=== PATIENT | male | born 1945 | race Hispanic/Latino ===

== ENCOUNTER → 2017-09-19 | Outpatient (CLI) | payer MEDICARE, OTHER ==
--- NOTE | 2017-09-21 03:30 | CT ---
EXAM DESCRIPTION: Abdoment/Pelvis w/o Contrast CLINICAL HISTORY: 71 years Male, HEMATURIA COMPARISON: None. TECHNIQUE: Contiguous axial CT images of the abdomen and pelvis were acquired without administration of intravenous contrast. Coronal and sagittal reformatted images are provided. This exam was performed according to our departmental dose-optimization program which includes use of Automated Exposure Control, adjustment of the mA and/or kV according to patient size and/or use of iterative reconstruction technique. FINDINGS: Chest base: Scattered bibasilar atelectasis. Coronary artery calcifications. Small hiatal hernia. Liver: Unremarkable. Gallbladder: Unremarkable. Spleen: Unremarkable. Adrenals: Unremarkable. Pancreas: Unremarkable. Right Kidney: 2 mm renal stone or vascular calcification within the upper pole of the right kidney. No hydronephrosis. No ureteral stone. Left Kidney: Vascular calcifications within the left kidney. No definite renal stone. No hydronephrosis. No ureteral stone. Aorta and branch vessels: Moderate calcific atherosclerosis of the aortoiliac vessels. Lymph nodes: No lymphadenopathy. Bowels: No obstruction. Colon: Scattered colonic diverticula. Appendix: Normal. Peritoneum: No free air or free fluid. Pelvic organs: Partially visualized penile implant. Bladder: Unremarkable. Bones and soft tissues: Small fat-containing right inguinal hernia. Fluid-containing left inguinal hernia. Cylindrical radiopaque object within the distal left inguinal canal, likely related to prior surgery. IMPRESSION: 2 mm renal stone or vascular calcification within the upper pole of the right kidney. No ureteral stones or hydronephrosis bilaterally. Electronically signed by: Pawel Galloway MD 09/21/2017 3:29 AM MAIL DISTRIBUTOR
== END | disposition home or self-care (01) ==
LOC: CT 08:30
PROVIDERS: ATTEND Urology
DX: R31.21 Asymptomatic microscopic hematuria (principal)

== ENCOUNTER → 2017-10-15 | Outpatient (CLI) | payer MEDICARE, OTHER | LOC: GMAH 10:21 | PROVIDERS: ATTEND Family Medicine | DX: I10 Essential (primary) hypertension (principal); N40.0 Benign prostatic hyperplasia without lower urinary tract symptoms; R97.20 Elevated prostate specific antigen [PSA]; E78.2 Mixed hyperlipidemia; E11.40 Type 2 diabetes mellitus with diabetic neuropathy, unspecified ==

== ENCOUNTER → 2017-10-18 | Outpatient (CLI) | payer MEDICARE, OTHER ==
--- NOTE | 2017-10-18 14:46 | CT ---
EXAM DESCRIPTION: Abdomen/Pelvis w/wo Contrast: CT. CLINICAL HISTORY: PROSTATE CA COMPARISON: None. TECHNIQUE: Spiral-axial scans at 5.0 mm intervals through the abdomen and pelvis before and after standard dose nonionic IV contrast. No oral contrast. Coronal and sagittal 2.0 mm reconstructions. 5 mm Delayed helical-axial scans, liver through the pubic symphysis. No adverse reactions. Total Exam DLP 2386.53 mGy - cm. This exam was performed according to our departmental CT dose-optimization program which includes automated exposure control, adjustment of the mA and/or kV according to patient size and/or use of iterative reconstruction technique; to reduce radiation dose to as low as reasonably achievable (ALARA). FINDINGS: Lung bases and pleura: Bilateral basilar pleural thickening. No effusion. No basilar infiltrates. Coronary artery stents or calcifications. Liver, Stomach, Spleen, Adrenal Glands: Normal size density and enhancement of the liver, spleen, adrenal glands, and stomach. Gallbladder unremarkable. Pancreas, Gallbladder, Ducts: Normal caliber of the common bile duct. Atrophy of the pancreas with vascular calcifications. Kidneys and Ureters: 3 millimeter radiodense stone in the inferior collecting system of the left kidney. 2 mm radiodense stone in the superior collecting system. Bilateral calcifications of the renal arteries and the intrarenal branches. Ureters are unremarkable.. Pelvic Organs: Calcification of seminal vesicles and vessels. Mild distention of urinary bladder. Internal obturator node on the right 10 mm short axis, by 16 mm (series 4, image [id number]). Another lymph node slightly more anterior and superior, right internal iliac chain, short axis measurement 7 mm. Also smaller less defined node measuring 7 mm in the contralateral left internal iliac chain (image 68). 5 mm short axis node in the left internal iliac chain. 7 mm short axis node in the right common iliac chain (image 58). Prostate gland abutting the rectal spleen and the ischial pubic muscles bilaterally. No significant calcification. Bilateral calcification of the seminal vesicles. Mesentery: No free air or free fluid. No stranding or fascial thickening. Physiologic thickening of the bilateral pararenal spaces. A series of shotty lymph nodes to the left of the aorta can be seen beginning at the left renal artery extending to the origin of the left internal iliac artery and the largest of these has a diameter in the short axis of 8 mm (image 43). Similar-appearing lymph nodes anterior to the IVC at the bifurcation and abutting the proximal right common iliac artery. Aorta: Moderate atherosclerotic calcification and no aneurysm. Calcification also in the proximal major renal arteries originating at the aorta. Small Bowel: Normal caliber with fluid and gas. Terminal Ileum/Cecum: Normal caliber. TI. No distention. Appendix normal caliber. Normal density of the surrounding fatty tissues. Colon: Gas and fecal material without distention. Moderate redundancy of the sigmoid colon. Spine and Bony Pelvis: Spondylosis at multiple levels. Minimal depression of the superior T12 endplate. Disc degeneration significant bulging L3-4 possibly bony and soft tissue encroaching on the thecal sac and foramina. Abdominal Wall/Back Soft Tissues: Patient has penile implant. Part of the implant is noted anterior and inferior to the left inguinal canal which is distended by gas and fluid with hernia. There is also distention of the right inguinal canal by fat with no bowel bilaterally. Small fatty diastases at the umbilicus. IMPRESSION: 1. Multiple small lymph nodes bilateral pelvis in the right internal obturator region and bilateral internal iliac and common iliac chains. Also small left periaortic nodes and nodes abutting the distal IVC and proximal right common iliac artery. 2. No free air. No ascites or free fluid in the pelvis. Bilateral small nonobstructing renal stones. Number bibasilar pleural thickening. No infiltrates. Coronary artery stents or calcifications. Spondylosis at multiple levels of the lumbar spine. Possible compression injury of unknown age in the superior T12 endplate. 3. Hydrocele or fluid in the dilated left inguinal canal. Fatty distention of the right inguinal canal. No bowel in the hernias. Umbilical diastases with no bowel herniation. 4. No focal lesions in the liver spleen pancreas kidneys thoracolumbar scoliosis with no focal sclerotic lesions. Spondylosis. Canal and foraminal narrowing L3-4. Electronically signed by: Juanjo Arias MD 10/18/2017 2:45 PM BANK VAULT CLERK
--- NOTE | 2017-10-18 21:45 | NM ---
EXAM DESCRIPTION: Bone Scan, Whole Body: NM. CLINICAL HISTORY: PROSTATE CA COMPARISON: None. TECHNIQUE: Patient injected with 25 mCi of technetium 99M MDP IV. Delayed gamma camera images from various planes were obtained 3 hr after injection. FINDINGS: Increased activity is noted in the bilateral shoulders, bilateral sternoclavicular joints, bilateral knees, bilateral ankles and bilateral mid tarsal joints. Normal soft tissue activity in the urinary bladder, scrotal, bilateral kidneys and the paranasal sinuses and nasal passageways. No abnormal activity in the long bones are flat bones that were included on the study. No abnormal activity in the included spine. IMPRESSION: Multiple foci of abnormal joint activity consistent with degenerative disease or osteoarthritis. No abnormal focal activity in the long bones are flat bones suggestive of metastatic disease. Electronically signed by: Juanjo Arias MD 10/18/2017 9:43 PM [facility] Workstation: [id number]
== END | disposition home or self-care (01) ==
LOC: CT 11:50
PROVIDERS: ATTEND Urology
DX: C61 Malignant neoplasm of prostate (principal)

== ENCOUNTER → 2018-02-13 | Outpatient (CLI) | payer MEDICARE, OTHER | LOC: GMAH 10:37 | PROVIDERS: ATTEND Family Medicine | DX: D64.9 Anemia, unspecified (principal); E53.8 Deficiency of other specified B group vitamins ==

== ENCOUNTER 2018-06-24 08:32 | Emergency (ER) | payer MEDICARE, OTHER ==
--- NOTE | 2018-06-24 09:11 | ED.PDOC ---
History of Present Illness - General Chief Complaint: Back Pain or Injury Time Seen by Provider: 06/24/18 09:08 Source: patient Exam Limitations: no limitations - History of Present Illness Initial Comments: the patient is a 72-year-old male presenting to emergency room secondary to left-sided low back pain with mild sciatica present intermittently over the last month but worse within the last week. He did see Dr. Marino one week ago and was written for some Mobic which he has been taking as well as a muscle relaxer. He also reports that he had an x-ray of his lumbar spine which did not show any acute pathology but mainly arthritis. The patient is having no weakness. He has not fallen. The pain is simply getting worse.no incontinence, loss of sensation or strength. Timing/Duration: unsure Severity: moderate Improving Factors: nothing Worsening Factors: movement Associated Symptoms: denies symptoms Allergies/Adverse Reactions: Allergies NO KNOWN ALLERGY Allergy (Verified 11/15/16 20:28) Home Medications: Ambulatory Orders Montelukast [Singulair] 10 mg PO DAILY #14 tab 11/15/16 Gabapentin 100 mg PO Q6HR PRN #60 cap 06/24/18 Review of Systems - Review of Systems Constitutional: States: no symptoms reported EENTM: States: no symptoms reported Respiratory: States: no symptoms reported Cardiology: States: no symptoms reported Gastrointestinal/Abdominal: States: no symptoms reported Genitourinary: States: no symptoms reported Musculoskeletal: States: back pain Skin: States: no symptoms reported Neurological: States: see HPI Endocrine: States: no symptoms reported All other Systems: No Change from Baseline Past Medical History (General) - Patient Medical History Hx Seizures: No Hx Stroke: No Hx Dementia: No Hx Asthma: No Hx of COPD: No Hx Cardiac Disorders: No Hx Congestive Heart Failure: Yes Hx Pacemaker: No Hx Hypertension: Yes Hx Thyroid Disease: No Hx Diabetes: Yes Hx Gastroesophageal Reflux: Yes Hx Renal Disease: No Hx Cancer: Yes Hx of HIV: No Hx Hepatitis C: No Hx MRSA: No - Vaccination History Hx Tetanus, Diphtheria Vaccination: No Hx Influenza Vaccination: Yes Hx Pneumococcal Vaccination: Yes Immunizations Up to Date: No - Social History Hx Tobacco Use: No Hx Chewing Tobacco Use: No Hx Alcohol Use: No Hx Substance Use: No Hx Substance Use Treatment: No Hx Depression: No Feels Threatened In Home Enviroment: No Feels Threatened In a Relationship: No Hx Physical Abuse: No Hx Emotional Abuse: No Hx Suspected Abuse: No - Activities of Daily Living Hospice Agency (if applicable):: None - Female History Patient is a Female of Child Bearing Age (10 -59 yrs old): No Patient : No Family Medical History - Family History Mother Family History: Unknown Physical Exam - Physical Exam General Appearance: Alert, No apparent distress Eye Exam: bilateral normal Ears, Nose, Throat: hearing grossly normal, normal ENT inspection, normal pharynx Neck: full range of motion, supple Respiratory: lungs clear, normal breath sounds, no respiratory distress, no accessory muscle use Cardiovascular/Chest: normal peripheral pulses Peripheral Pulses: radial,right: 2+, radial,left: 2+, dorsalis pedis,right: 2+, dorsalis pedis,left: 2+ Gastrointestinal/Abdominal: non tender - morbidly obese, soft Rectal Exam: deferred Back Exam: CVA tenderness (L) Extremity: non-tender, normal inspection, normal capillary refill, pedal edema - +1 edema to bilateral lower extremities. 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 The patient has been taking Mobic but condition has been progressive in spite of that. He has also been taking a muscle relaxer which has helped somewhat. The patient is going to be placed on Neurontin 100 mg up to 4 times daily as needed. He is to give this a week as a trial and follow-up with his primary care doctor for a reevaluation. I do believe that he would benefit from physical therapy for his back. In the meantime I have encouraged him to do exercises such as rowing, swimming and stationary bicycling in order to strengthen the muscles anterior to the lumbar spine and encourage weight loss. He does understand the instructions that have been given him. ER warnings were given. Keep follow-up with primary care doctor. Steroids are avoided secondary to diabetes. - EKG/XRAY/CT CT Ordered: No CT Interpretation Call Back: No Departure - Departure Clinical Impression: Low back pain Qualifiers: Chronicity: chronic Back pain laterality: left Sciatica presence: with sciatica Sciatica laterality: sciatica of left side Qualified Code(s): M54.42 - Lumbago with sciatica, left side; G89.29 - Other chronic pain; G89.29 - Other chronic pain Disposition: Discharge to Home or Self Care Condition: Fair Departure Forms: ED Discharge - Pt. Copy, Patient Portal Self Enrollment Instructions: DI for Back Pain With Sciatica Diet: diabetic diet Activity: increase activity as tolerated Referrals: Matty Marino MD [Primary Care Provider] - 1-5 Days Prescriptions: Gabapentin 100 mg PO Q6HR PRN #60 cap PRN Reason: Moderate To Severe Pain Home Medications: Ambulatory Orders Montelukast [Singulair] 10 mg PO DAILY #14 tab 11/15/16 Gabapentin 100 mg PO Q6HR PRN #60 cap 06/24/18 Additional Instructions: the patient is a 72-year-old male presenting to the emergency room secondary to low back pain from degenerative disease of the lumbar spine with associated left-sided sciatica that has been worsening over the last month. The patient has been taking Mobic but condition has been progressive in spite of that. He has also been taking a muscle relaxer which has helped somewhat. The patient is going to be placed on Neurontin 100 mg up to 4 times daily as needed. He is to give this a week as a trial and follow-up with his primary care doctor for a reevaluation. I do believe that he would benefit from physical therapy for his back. In the meantime I have encouraged him to do exercises such as rowing, swimming and stationary bicycling in order to strengthen the muscles anterior to the lumbar spine and encourage weight loss. He does understand the instructions that have been given him. ER warnings were given. Keep follow-up with primary care doctor. Steroids are avoided secondary to diabetes.
[2018-06-24] MEDS ORDERED: GABAPENTIN 300 MG CAP PO ONE (09:16)
[2018-06-24 09:26] VITALS: BP 162/76; TEMP 98.2; O2SAT 96
== END 2018-06-24 09:28 | disposition home or self-care (01) ==
LOC: ER 08:32
DX: M54.42 Lumbago with sciatica, left side (principal); G89.29 Other chronic pain; M51.16 Intervertebral disc disorders with radiculopathy, lumbar region; E11.9 Type 2 diabetes mellitus without complications; K21.9 Gastro-esophageal reflux disease without esophagitis; I50.9 Heart failure, unspecified; I11.0 Hypertensive heart disease with heart failure; Z79.899 Other long term (current) drug therapy; Z85.9 Personal history of malignant neoplasm, unspecified

== ENCOUNTER → 2018-06-25 | Outpatient (CLI) | payer MEDICARE, OTHER ==
--- NOTE | 2018-06-25 13:57 | CT ---
Study: CT of the Lumbar Spine. Indication: LOW BACK PAIN Technique: Axial CT images of the lumbar spine acquired without intravenous contrast. Coronal and sagittal reformats performed. This exam was performed according to our departmental dose-optimization program, which includes automated exposure control, adjustment of the mA and/or kV according to patient size and/or use of iterative reconstruction technique. Comparison: CT abdomen and pelvis October 18, 2017. Findings: No acute lumbar vertebral body fracture. Mild levocurvature lumbar spine. Pedicles congenitally short throughout. Osteopenia. L1-L2: Mild to moderate disc space height loss with mild ex vacuo disc phenomenon. 3 mm disc osteophyte complex with moderate bilateral neural foraminal narrowing. No spinal canal narrowing. Moderate bilateral facet arthrosis. L2-L3: Mild disc space height loss. 3 mm disc osteophyte complex. Moderate bilateral facet arthrosis with mild to moderate bilateral neural foraminal narrowing. No spinal canal narrowing. L3-L4: Moderate disc space height loss with mild ex vacuo disc phenomenon. 5 mm disc osteophyte complex with moderate bilateral neural foraminal narrowing. Moderate bilateral facet arthrosis. Mild ligament flavum buckling. Moderate spinal canal narrowing, mid sagittal thecal sac diameter 6.4 mm. L4-L5: Mild disc space height loss. 3.5 mm disc osteophyte complex with mild to moderate bilateral neural foraminal narrowing. Moderate bilateral facet arthrosis and mild ligament flavum buckling. Mild to moderate spinal canal narrowing, mid sagittal thecal sac diameter 8 mm. L5-S1: Moderate to severe disc space height loss and ex vacuo disc phenomenon. 5.5 mm disc osteophyte complex with moderate to severe bilateral neural foraminal narrowing. Mild left lateral recess narrowing. No spinal canal narrowing. Pronounced atherosclerosis aorta and its branches. Marked distention of the bladder suspected. 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 Findings most pronounced at L3-L4 as detailed above. Atherosclerosis. Osteopenia. If this is a new finding, DEXA scan recommended as well as evaluation for possible osteoporosis treatment. Marked distention of the bladder, nonspecific. Electronically signed by: Cristian Green MD 06/25/2018 1:56 PM CDT
== END ==
LOC: CT 11:06
PROVIDERS: ATTEND Family Medicine
DX: M51.36 Other intervertebral disc degeneration, lumbar region (principal); M54.5 Low back pain; I70.90 Unspecified atherosclerosis

== ENCOUNTER 2019-05-17 11:28 | Emergency (ER) | payer MEDICARE, OTHER ==
[2019-05-17] MEDS ORDERED: ASPIRIN TABLET 325 MG TAB PO ONE (11:49)
[2019-05-17] MEDS ORDERED: IPRATROPIUM/ALBUTEROL 3 ML VIAL NEB ONE (11:49)
--- NOTE | 2019-05-17 12:37 | RAD ---
EXAM: XR Chest, 2 Views CLINICAL HISTORY: 73 years old and is Male; sob, intermittent cp, hx prostate cancer TECHNIQUE: Frontal and lateral views of the chest. COMPARISON: No relevant prior studies available. FINDINGS: Limitations: None. Lungs: Unremarkable. No consolidation. Pleural space: Unremarkable. No pneumothorax. Heart: Prominent cardiac shadow. Mediastinum: Unremarkable. Bones/joints: Unremarkable. Vasculature: There is overall diminished ventilation vascular crowding. IMPRESSION: No acute findings. Electronically signed by: Leticia Pike MD 05/17/2019 12:35 PM CDT
[2019-05-17] MEDS ORDERED: SODIUM CHLORIDE 0.9% 1000ML 500 ML IVS ONE (12:53)
[2019-05-17] MEDS ORDERED: HEPARIN SODIUM (PORCINE) 5,000 U/ML VIAL IV ONE (13:25)
--- NOTE | 2019-05-17 13:25 | ED.PDOC ---
History of Present Illness - General Chief Complaint: Respiratory Problem Stated Complaint: Longstanding cough, SOB, sore throat Time Seen by Provider: 05/17/19 11:29 Source: patient Exam Limitations: no limitations - History of Present Illness Initial Comments: The patient is a 73-year-old male presenting to the emergency room essentially secondary to chest pain. Over the last week the patient has been having increased frequency of chest pain to be left side of the chest. More pressure and aching type in nature. The patient has had a two-year progressive history of increasing dyspnea on exertion. He has been using his albuterol inhaler more frequently. He has not feeling like it is helping. He obviously does have a history of asthma. They deny any history of COPD. No fever. He did have a sore throat earlier in the week. He does have a history of some [id number] chronic renal insufficiency and does take Lasix twice a day for chronic dependent edema. He is currently chest pain-free. He does get very short of breath with any exertion. Exertion does seem to make bring the chest pain on somewhat. Timing/Duration: unsure Severity: moderate Improving Factors: nothing Worsening Factors: nothing Associated Symptoms: chest pain, shortness of breath Allergies/Adverse Reactions: Allergies NO KNOWN ALLERGY Allergy (Verified 11/15/16 20:28) Home Medications: Ambulatory Orders Albuterol Sulfate [Ventolin Hfa] 2 puff INH Q4H PRN 05/17/19 Aspirin [Aspirin EC] 81 mg PO BEDTIME 05/17/19 Atorvastatin Calcium [Lipitor] 80 mg PO BEDTIME 05/17/19 Fluticasone Furoate-Vilanterol [Breo Ellipta] 1 inh IN DAILY 05/17/19 Furosemide 40 mg PO BID 05/17/19 Insulin Regular (Human) [Humulin R] 15 unit SUBCU DAILY 05/17/19 Insulin Regular (Human) [Humulin R] 20 unit SUBCU BEDTIME 05/17/19 Lisinopril [Prinivil] 10 mg PO DAILY 05/17/19 Tamsulosin HCl 0.4 mg PO BEDTIME 05/17/19 Review of Systems - Review of Systems Constitutional: States: malaise EENTM: States: nose congestion, throat pain - largely resolved at this point Respiratory: States: short of breath Cardiology: States: chest pain, edema Gastrointestinal/Abdominal: States: no symptoms reported Genitourinary: States: no symptoms reported Musculoskeletal: States: no symptoms reported Skin: States: no symptoms reported Neurological: States: no symptoms reported Endocrine: States: no symptoms reported All other Systems: No Change from Baseline Past Medical History (General) - Patient Medical History Hx Seizures: No Hx Stroke: No Hx Dementia: No Hx Asthma: Yes Hx of COPD: No Hx Cardiac Disorders: Yes - Hyperlipidemia Hx Congestive Heart Failure: Yes Hx Pacemaker: No Hx Hypertension: Yes Hx Thyroid Disease: No Hx Diabetes: Yes Hx Gastroesophageal Reflux: Yes Hx Renal Disease: No Hx Cancer: Yes - Prostate CA 2018 Hx of HIV: No Hx Hepatitis C: No Hx MRSA: No - Vaccination History Hx Tetanus, Diphtheria Vaccination: No Hx Influenza Vaccination: Yes - 2018 Hx Pneumococcal Vaccination: Yes - 2018 - Social History Hx Tobacco Use: No Hx Chewing Tobacco Use: No Hx Alcohol Use: No Hx Substance Use: No Hx Substance Use Treatment: No Hx Depression: No Hx Physical Abuse: No Hx Emotional Abuse: No Hx Suspected Abuse: No - Female History Patient : No Family Medical History - Family History Mother Family History: Unknown Living Status: Physical Exam - Physical Exam General Appearance: Alert, Comfortable, No apparent distress Eye Exam: bilateral normal Ears, Nose, Throat: normal pharynx, other - chronic decreased hearing on the left. Neck: full range of motion, supple Respiratory: lungs clear, normal breath sounds, no respiratory distress, no accessory muscle use, other - he does show increased work of breathing with exertion. Fair air movement. He is morbidly obese. 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 Comments: Vital Signs - 24 hr 05/17/19 05/17/19 05/17/19 11:30 11:57 12:00 Temperature 98.1 F Pulse Rate 65 Pulse Rate [ 68 67 Right Radial] Respiratory 28 H 16 18 Rate Blood Pressure 157/69 128/68 [Right Arm] O2 Sat by Pulse 99 98 98 Oximetry 05/17/19 12:30 Temperature 97.8 F Pulse Rate Pulse Rate [ 68 Right Radial] Respiratory 14 Rate Blood Pressure 135/54 [Right Arm] O2 Sat by Pulse 99 Oximetry Progress - Progress Progress: 05/17/19 13:28 the patient is a 73-year-old male presented to emergency room secondary to progressive episodes of chest pain. He is currently chest pain-free. The concern here is for unstable angina given his presentation and multitude of risk factors. He has received an aspirin as well as a breathing treatment for sh ortness of breath. He has been placed on heparin. He'll be transferred to [facility] for further evaluation with cardiology and workup and intervention as deemed appropriate. Again he is chest pain-free at this time. He does have acute on chronic renal failure. He is being given a small IV fluid bolus here. Certainly uremia may be contributing to the chest pains as well. He would benefit from an evaluation with a assistant basketball coach as well. Transferred for higher level of care. Vital signs are stable. First set of cardiac enzymes are negative. - Results/Orders Results/Orders: chest x-ray shows no acute pathology.See report for details. EKG shows normal sinus rhythm at 68 bpm. There is a first-degree AV block. 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 He does have a T-wave inversion in aVL. Otherwise no definitive ST segment or T-wave changes indicative of acute ischemia on the EKG. This EKG is consistent with an EKG from 1 year ago. Laboratory Tests 05/17/19 05/17/19 05/17/19 12:07 12:07 12:07 WBC 6.7 RBC 3.46 L Hgb 9.6 L Hct 29.7 L MCV 85.8 MCH 27.6 MCHC 32.2 L RDW 17.5 H Plt Count 226 MPV 8.3 Absolute Neuts (auto) 5.10 Absolute Lymphs (auto) 0.90 L Absolute Monos (auto) 0.50 Absolute Eos (auto) 0.20 Absolute Basos (auto) 0.10 Neutrophils % 75.7 Lymphocytes % 13.3 L Monocytes % 7.2 Eosinophils % 2.9 Basophils % 0.9 PT 9.5 INR 0.95 PTT (SP) 26.6 D-Dimer, Quantitative 1.85 H* Sodium 137 Potassium 5.1 H Chloride 104 Carbon Dioxide 22 Anion Gap 16.1 BUN 72 H Creatinine 2.27 H BUN/Creatinine Ratio 31.7 H Random Glucose 158 H Serum Osmolality 298.3 H Calcium 8.8 Magnesium 2.7 H Total Bilirubin 0.4 AST 13 ALT 16 Alkaline Phosphatase 87 Creatine Kinase 51 CK-MB (CK-2) 2.2 CK-MB (CK-2) % Not Reportable Troponin I 0.02 B-Natriuretic Peptide 155.0 H Serum Total Protein 7.1 Albumin 3.5 Globulin 3.6 H Albumin/Globulin Ratio 1.0 L Total PSA TSH 2.46 05/17/19 12:07 WBC RBC Hgb Hct MCV MCH MCHC RDW Plt Count MPV Absolute Neuts (auto) Absolute Lymphs (auto) Absolute Monos (auto) Absolute Eos (auto) Absolute Basos (auto) Neutrophils % Lymphocytes % Monocytes % Eosinophils % Basophils % PT INR PTT (SP) D-Dimer, Quantitative Sodium Potassium Chloride Carbon Dioxide Anion Gap BUN Creatinine BUN/Creatinine Ratio Random Glucose Serum Osmolality Calcium Magnesium Total Bilirubin AST ALT Alkaline Phosphatase Creatine Kinase CK-MB (CK-2) CK-MB (CK-2) % Troponin I B-Natriuretic Peptide Serum Total Protein Albumin Globulin Albumin/Globulin Ratio Total PSA < 0.01 TSH Departure - Departure Clinical Impression: Unstable angina Acute on chronic renal failure Qualifiers: Acute renal failure type: unspecified Chronic kidney disease stage: stage 3 (moderate) Qualified Code(s): N17.9 - Acute kidney failure, unspecified; N18.3 - Chronic kidney disease, stage 3 (moderate) Disposition: Transfer to Hospital Departure Forms: ED Discharge - Pt. Copy, Patient Portal Self Enrollment Referrals: Matty Marino MD [Primary Care Provider] - 1-2 Weeks Home Medications: Ambulatory Orders Albuterol Sulfate [Ventolin Hfa] 2 puff INH Q4H PRN 05/17/19 Aspirin [Aspirin EC] 81 mg PO BEDTIME 05/17/19 Atorvastatin Calcium [Lipitor] 80 mg PO BEDTIME 05/17/19 Fluticasone Furoate-Vilanterol [Breo Ellipta] 1 inh IN DAILY 05/17/19 Furosemide 40 mg PO BID 05/17/19 Insulin Regular (Human) [Humulin R] 15 unit SUBCU DAILY 05/17/19 Insulin Regular (Human) [Humulin R] 20 unit SUBCU BEDTIME 05/17/19 Lisinopril [Prinivil] 10 mg PO DAILY 05/17/19 Tamsulosin HCl 0.4 mg PO BEDTIME 05/17/19 Transfer to Outside Facility - Transfer Information Accepting Provider:: dr horvath Accepting Facility: [facility] Reason for Transfer: required specialist not available
[2019-05-17 13:57] VITALS: TEMP 97.2
[2019-05-17 14:19] VITALS: BP 122/75; O2SAT 98
== END 2019-05-17 14:19 | disposition short-term general hospital (02) ==
LOC: ER 11:28
DX: I20.0 Unstable angina (principal); N17.9 Acute kidney failure, unspecified; N18.3 Chronic kidney disease, stage 3 (moderate); I44.0 Atrioventricular block, first degree; I45.2 Bifascicular block; E66.01 Morbid (severe) obesity due to excess calories; K21.9 Gastro-esophageal reflux disease without esophagitis; E11.22 Type 2 diabetes mellitus with diabetic chronic kidney disease; I13.0 Hypertensive heart and chronic kidney disease with heart failure and stage 1 through stage 4 chronic kidney disease, or unspecified chronic kidney disease; I50.9 Heart failure, unspecified; E78.00 Pure hypercholesterolemia, unspecified; J45.909 Unspecified asthma, uncomplicated; Z85.46 Personal history of malignant neoplasm of prostate; Z79.4 Long term (current) use of insulin; Z79.899 Other long term (current) drug therapy; Z79.82 Long term (current) use of aspirin
CPT/HCPCS: 36415; 71046; 80053; 82550; 82553; 82948; 83735; 83880; 84443; 84484; 85025; 85379; 85610; 85730; 93005; 94640; G0103; J1644; J7030; J7620

== ENCOUNTER → 2019-08-05 | Outpatient (CLI) | payer MEDICARE, OTHER ==
--- NOTE | 2019-08-05 11:01 | RAD ---
EXAM DESCRIPTION: Chest,2 Views CLINICAL HISTORY: PLEURAL EFFUSION COMPARISON: Previous study May 17, 2019 TECHNIQUE: PA/lateral FINDINGS: Heart is enlarged with centrally prominent pulmonary vascularity. Large left pleural effusion. No pneumothorax. Infiltrate or volume loss in the left mid and lower lung zones above the effusion. Cardiac pacer is in place. Sternotomy wires are present. Lateral view shows intact sternum and T-spine. IMPRESSION: Moderate to large left pleural effusion with left mid and lower lung consolidation. Electronically signed by: Dann Jasso MD 08/05/2019 10:59 AM CDT
== END ==
LOC: RAD 09:33
PROVIDERS: ATTEND Surgery
DX: J90 Pleural effusion, not elsewhere classified (principal)

== ENCOUNTER → 2020-05-18 | Outpatient (CLI) | payer MEDICARE, OTHER | LOC: GMA MATASK 10:40 | PROVIDERS: ATTEND Family Medicine | DX: E78.2 Mixed hyperlipidemia (principal); Z12.5 Encounter for screening for malignant neoplasm of prostate; I10 Essential (primary) hypertension; E11.59 Type 2 diabetes mellitus with other circulatory complications | CPT/HCPCS: 84443; 84550; G0103 ==

== ENCOUNTER → 2020-10-13 | Outpatient (CLI) | payer MEDICARE, OTHER | LOC: LAB.O 15:03 | PROVIDERS: ATTEND Urology | DX: C61 Malignant neoplasm of prostate (principal) ==